=== PATIENT | female | born 1960 | race Caucasian/White ===

== ENCOUNTER 2021-07-09 00:55 | Emergency (ER) | payer OTHER ==
[2021-07-09 01:09] VITALS: BP 180/87; PULSE 77; TEMP 97.9; BMI 24.4
== END 2021-07-09 04:12 | disposition home or self-care (01) ==
LOC: JER 00:55
DX: R22.0 Localized swelling, mass and lump, head (principal)
CPT/HCPCS: 76536-TC; 99284-25